=== PATIENT | female | born 1985 | race Caucasian/White ===

== ENCOUNTER 2017-02-25 09:11 | Emergency (ER) | payer BC, OTHER ==
[~2017-02-25 09:11] MED LIST: LEXA10TA PO; OMPR20CCR PO; PANT40P IVP
--- NOTE | 2017-02-25 09:57 | PD ---
HPI Chief Complaint Lower abdominal pain Date Seen: Feb 25, 2017 Time Seen: 09:52 Travel History International Travel<30 Days: No Contact w/Intl Traveler<30Days: No Known Affected Area: No History of Present Illness HPI 31-year-old 2 para 1 at 27+ weeks gestation who awoke this morning with lower abdominal pain which she describes in the suprapubic area slightly greater on the left. It has been intermittent and not aggravated by anything in particular. She has not found any alleviating components. No dysuria hematuria or frequency. No leakage of fluid or vaginal bleeding and no vaginal discharge. History Past Medical History Medical History: Denies Significant Hx Obstetric History Obstetric History Prior at term for failed induction care with Dr. 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 Family History: Negative Social History Alcohol Use: No Tobacco Use: No Allergies-Medications (Allergen,Severity, Reaction): Coded Allergies: No Known Allergies (Verified , 07/07/14) Home Meds Active Scripts Omeprazole (Prilosec 20 Mg Cap) 20 Mg Capcr, 20 MG PO DAILY, #30 CAP Prov:Sohail Price MD 07/07/14 Reported Medications Pantoprazole Sodium (Protonix) 40 Mg Inj, 40 MG IVP Q24H, INJ 07/07/14 Escitalopram Oxalate (Lexapro) 10 Mg Tab, 10 MG PO DAILY, TAB 07/07/14 Review of Systems Except as stated in HPI: all other systems reviewed are Neg Physical Exam Narrative GENERAL: Well-nourished, well-developed patient. SKIN: Warm and dry. HEAD: Normocephalic and atraumatic. EYES: No scleral icterus. No injection or drainage. ENT: No nasal drainage noted. Mucous membranes pink. Airway patent. NECK: Supple, trachea midline. No JVD. CARDIOVASCULAR: Regular rate and rhythm without murmurs, gallops, or rubs. RESPIRATORY: Breath sounds equal bilaterally. No accessory muscle use. ABDOMEN/GI: Abdomen soft, non-tender, bowel sounds present, no rebound, no guarding Gravid to [-] weeks size Fundal Height: [-] GENITOURINARY: External Genitalia: intact and normal in appearance BUS glands: [-] Cervix: [-] Dilatation: [Closed long-] Effacement: [-Long] Station: [-] Presentation: [-] Membranes: [intact] Uterine Contractions: [None-] FHT's: Category: [1-] Baseline: [-] Reactive: [-] Variability: [-] Decels: [-] EXTREMITIES: No cyanosis or edema. BACK: Nontender without obvious deformity. No CVA tenderness. NEUROLOGICAL: Awake and alert. Motor and sensory grossly within normal limits. Five out of 5 muscle strength in all muscle groups. Normal speech. MDM Medical Record Reviewed: Yes Narrative Course / MDM Assessment: 27+ week intrauterine with lower abdominal pain possibly round ligament pain Plan: Precautions were reviewed with the patient and she'll follow for routine care. Diagnosis Diagnosis: Primary Impression: 27 weeks gestation of Additional Impression: Round ligament pain Disposition: 01 DISCHARGE HOME Condition: Good Marcelo Vines MD Feb 25, 2017 09:57
== END 2017-02-25 14:17 | disposition home or self-care (01) ==
LOC: HOBED 09:11
DX: O26.892 Other specified pregnancy related conditions, second trimester (principal); Z3A.27 27 weeks gestation of pregnancy
CPT/HCPCS: 99283

== ENCOUNTER 2017-05-09 09:10 | Emergency (ER) | payer OTHER ==
--- NOTE | 2017-05-09 10:38 | PD ---
HPI Chief Complaint Lower abdominal pelvic pain for 1 day, urinary leakage Date Seen: May 09, 2017 Time Seen: 10:20 Travel History International Travel<30 Days: No Contact w/Intl Traveler<30Days: No Known Affected Area: No History of Present Illness HPI Patient is 32-year-old white female A1 previous now 37 weeks and [address] Merritt for care who presents with one-day history of severe pain with movement in the symphysis area lower abdomen and almost upper outer vaginal area. Pain is severe with movement she can hardly walk she can not get in and out of the car but when laying still it is not bad, patient states she's had somewhat of a problem with this since early in the second trimester and she is discussed with Dr. Merritt before. This never been bad enough to really do anything about but today this morning it is much much worse area and heart rate tracing is reactive she's having no regular contractions only 1 or 2 has been seen. Patient scheduled for C- section in 12 days as a repeat, she is also in breech presentation prior to today and today by ultrasound Weeks Gestation: 37 Para: 1 : 3 Last Menstrual Period: May 09, 2017 Miscarriage: 1 History Obstetric History Obstetric History 1 and one early loss Past Surgical History Narrative Surgical 1 Social History Alcohol Use: No Tobacco Use: No Substance Abuse: No Allergies-Medications (Allergen,Severity, Reaction): Coded Allergies: No Known Allergies (Verified , 07/07/14) Home Meds Active Scripts Omeprazole (Prilosec 20 Mg Cap) 20 Mg Capcr, 20 MG PO DAILY, #30 CAP Prov:Sohail Price MD 07/07/14 Reported Medications Pantoprazole Sodium (Protonix) 40 Mg Inj, 40 MG IVP Q24H, INJ 07/07/14 Escitalopram Oxalate (Lexapro) 10 Mg Tab, 10 MG PO DAILY, TAB 07/07/14 Review of Systems General / Constitutional: No: Fever, Weight Gain, Chills, Other Eyes: No: Diploplia, Blurred Vision, Visual changes, Pain, Photophobia HENT: No: Headaches, Vertigo, Lightheadedness Cardiovascular: No: Irregular Rhythm, Chest Pain or Discomfort, Palpitations, Tachycardia, Syncope, Varicosities, Edema, Cyanosis Respiratory: No: Cough, Short of Breath, Other Gastrointestinal: Abdominal Pain, No: Nausea, Vomiting, Diarrhea Genitourinary: No: Decreased Urinary Output, Oliguria Musculoskeletal: No: Limited ROM, Weakness, Cramping, Edema, Pain Skin: No Rash, No Itching, No Dryness, No Lumps, No Change in Pigmentation, No Change in Nails, No Alopecia, No Lesions Neurologic: No: Weakness, Dizziness, Syncope, Focal Abnormalities, Coordination Problem, Headache, Slurred Speech, Seizures Psychiatric: No: Depression, Suicidal Ideations, Homicidal Ideation Endocrine: No: Heat Intolerance, Cold Intolerance, Polydipsia, Polyuria, Other Physical Exam Narrative GENERAL: Well-nourished, well-developed patient. SKIN: Warm and dry. HEAD: Normocephalic and atraumatic. EYES: No scleral icterus. No injection or drainage. ENT: No nasal drainage noted. Mucous membranes pink. Airway patent. NECK: Supple, trachea midline. No JVD. CARDIOVASCULAR: Regular rate and rhythm without murmurs, gallops, or rubs. RESPIRATORY: Breath sounds equal bilaterally. No accessory muscle use. BREASTS: Bilateral exam showed no masses , no retractions, no nipple discharge. ABDOMEN/GI: Abdomen soft, non-tender, bowel sounds present, no rebound, no guarding Gravid to [38-] weeks size Fundal Height: [38-] GENITOURINARY: External Genitalia: intact and normal in appearance Symphysis bone palpated from vaginal standpoint is quite tender Cervix: [-Posterior] Dilatation: [-] Closed Effacement: [-thick] Station: [-3] Presentation: [-Breech by ultrasound today] Membranes: [intact ] Uterine Contractions: [Occasional-] FHT's: Category: [1-] Baseline: [-133] Reactive: [-yes] Variability: [mod-] Decels: [0-] EXTREMITIES: No cyanosis or edema. BACK: Nontender without obvious deformity. No CVA tenderness. NEUROLOGICAL: Awake and alert. Motor and sensory grossly within normal limits. Five out of 5 muscle strength in all muscle groups. Normal speech. Data Data Orders Orders Urinalysis - C+S If Indicated (05/09/17 10:18) Labs Urine dip stick evaluation on OB ED is negative for infection MDM Interpretation(s) Patient is 32-year-old white female A1 at 37 weeks was previous scheduled for repeat in 12 days who presents complaining of severe pain when walking or moving in the symphysis area and upper vagina area. She's had some issues with this earlier in but just had this since this morning it's been extremely bad, she is also incontinent of urine at times the pain happens she will ultimately compare amount of urine amnio sure is negative today. Heart rate tracing is reactive and no regular contractions, cervix is closed thick and high Impression--diastasis symphysis bone with resulting severe pain with movement and walking, urinary incontinence also related to the same problem Plan--bedrest at this time, possibly is abdominal binder to take the weight up off of the symphysis, with the assistance like a walker that the elderly use use by mouth pain medication and Dr. Merritt will review case is well and there is the the alternative care for symptoms are relieved to deliver by somewhat early to try and treat her problem Plan We'll discuss with Dr. Merritt treatment options and he was discussed with the patient once appropriate along with the nursing staff as well and map out a plan of care for the patient Diagnosis Diagnosis: Primary Impression: Traumatic diastasis of symphysis pubis Additional Impressions: Previous section Urinary incontinence Disposition: 01 DISCHARGE HOME Condition: Stable Layo Perry II, MD May 09, 2017 10:38
[2017-05-09 10:43] LABS: BACTERIA, URINE RARE /hpf; BLOOD, URINE NEG (NEG); COMMENT (UR) CULT NOT INDICATED; CULTURE IF INDICATED CULT NOT INDICATED; GLUCOSE,URINE NEG (NEG); KETONE, URINE NEG (NEG); MUCUS URINE FEW /lpf (OCC); NITRITE,URINE NEG (NEG); SQUAMOUS EPITHELIAL CELL URINE 2 /hpf (0-5); URINE COLOR YELLOW (YELLW/STRAW)
== END 2017-05-09 11:17 | disposition home or self-care (01) ==
LOC: HOBED 09:10
DX: O26.893 Other specified pregnancy related conditions, third trimester (principal); R32 Unspecified urinary incontinence; R10.30 Lower abdominal pain, unspecified; M62.08 Separation of muscle (nontraumatic), other site; Z3A.37 37 weeks gestation of pregnancy
CPT/HCPCS: 59025; 76815; 81001; 84112

== ENCOUNTER 2017-05-17 12:00 | Inpatient (IN) | payer OTHER ==
[~2017-05-17] VITALS: Ht 170.2 cm; Wt 114.0 kg
[2017-05-21] VITALS (9 sets, daily range): BP systolic 91–112; BP diastolic 50–54; PULSE 72–82; RESP 16–19; TEMP 97.7–98.2; O2SAT 100
[2017-05-21] MEDS ORDERED: LACTATED RINGER'S 1000 ML INJ 1,000 ML IV ONE (10:20)
--- NOTE | 2017-05-21 10:21 | HHI.HP ---
HPI Chief Complaint Repeat Date Seen: May 21, 2017 Travel History International Travel<30 Days: No Contact w/Intl Traveler<30Days: No History of Present Illness HPI Patient is a 32 year old at 39-4/7 weeks gestation who presents today for a repeat . She denies any vaginal bleeding or discharge. No gush or leaking of fluid. Positive movement. History Past Medical History Medical History: Denies Significant Hx Obstetric History Obstetric History in 2007 for failed induction, macrosomia at 40 weeks gestation spontaneous Past Surgical History Narrative Surgical 2007 Family History Narrative Family History stomach cancer HLD Social History Alcohol Use: No Tobacco Use: No Substance Abuse: No Allergies-Medications (Allergen,Severity, Reaction): Coded Allergies: No Known Allergies (Verified Allergy, Unknown, 05/21/17) Home Meds Reported Medications Ranitidine (Zantac) 150 Mg Tab, 150 MG PO BID for Reduce Stomach Acid, #60 TAB 0 Refills 05/21/17 Vit-Iron Carbonyl ( Plus Iron 29-1 mg) 29 Mg Iron-1 Mg Tab, 1 TAB PO DAILY for Nutritional Supplement, #30 TAB 0 Refills 05/21/17 Discontinued Reported Medications Pantoprazole Sodium (Protonix) 40 Mg Inj, 40 MG IVP Q24H, INJ 07/07/14 Escitalopram Oxalate (Lexapro) 10 Mg Tab, 10 MG PO DAILY, TAB 07/07/14 Discontinued Scripts Omeprazole (Prilosec 20 Mg Cap) 20 Mg Capcr, 20 MG PO DAILY, #30 CAP Prov:Sohail Price MD 07/07/14 Review of Systems Except as stated in HPI: all other systems reviewed are Neg General / Constitutional: No: Fever, Chills Eyes: No: Visual changes HENT: No: Headaches Cardiovascular: No: Chest Pain or Discomfort Respiratory: No: Short of Breath Gastrointestinal: No: Abdominal Pain Genitourinary: No: Pelvic Pain, Discharge, Vaginal Bleeding Musculoskeletal: No: Edema Neurologic: No: Headache Psychiatric: No: Substance Abuse Physical Exam Narrative GENERAL: Well-nourished, well-developed patient. SKIN: Warm and dry. HEAD: Normocephalic and atraumatic. EYES: No scleral icterus. No injection or drainage. ENT: No nasal drainage noted. Mucous membranes pink. Airway patent. NECK: Supple, trachea midline. No JVD. CARDIOVASCULAR: Regular rate and rhythm without murmurs, gallops, or rubs. RESPIRATORY: Breath sounds equal bilaterally. No accessory muscle use. ABDOMEN/GI: Abdomen soft, non-tender, bowel sounds present, no rebound, no guarding Gravid to 39 weeks size GENITOURINARY: External Genitalia: intact and normal in appearance Presentation: vertex Membranes: intact Uterine Contractions: q2-3 minutes FHT's: Category: I Baseline: 120 Reactive: + Variability: moderate Decels: none EXTREMITIES: No cyanosis or edema. BACK: Nontender without obvious deformity. No CVA tenderness. NEUROLOGICAL: Awake and alert. Motor and sensory grossly within normal limits. Normal speech. Caprini VTE Risk Assessment Caprini VTE Risk Assessment: No/Low Risk (score <= 1) Caprini Risk Assessment Model Point Value = 1 Point Value = 2 Point Value = 3 Point Value = 5 Age 41-60 Minor surgery BMI > 25 kg/m2 Swollen legs Varicose veins or History of unexplained or recurrent spontaneous Oral contraceptives or hormone replacement Sepsis (< 1 month) Serious lung disease, including pneumonia (< 1 month) Abnormal pulmonary function Acute myocardial infarction Congestive heart failure (< 1 month) History of inflammatory bowel disease Medical patient at bed rest Age 61-74 Arthroscopic surgery Major open surgery (> 45 min) Laparoscopic surgery (> 45 min) Malignancy Confined to bed (> 72 hours) Immobilizing plaster cast Central venous access Age >= 75 History of VTE Family history of VTE Factor V Leiden Prothrombin [id number] Lupus anticoagulant Anticardiolipin antibodies Elevated serum homocysteine Heparin-induced thrombocytopenia Other congenital or acquired thrombophilia Stroke (< 1 month) Elective arthroplasty Hip, pelvis, or leg fracture Acute spinal cord injury (< 1 month) Prophylaxis Regimen Total Risk Factor Score Risk Level Prophylaxis Regimen 0-1 Low Early ambulation 2 Moderate Order ONE of the following: *Sequential Compression Device (SCD) *Heparin 5000 units SQ BID 3-4 Higher Order ONE of the following medications: *Heparin 5000 units SQ TID *Enoxaparin/Lovenox 40 mg SQ daily (WT < 150 kg, CrCl > 30 mL/min) *Enoxaparin/Lovenox 30 mg SQ daily (WT < 150 kg, CrCl > 10-29 mL/min) *Enoxaparin/Lovenox 30 mg SQ BID (WT < 150 kg, CrCl > 30 mL/min) AND/OR *Sequential Compression Device (SCD) 5 or more Highest Order ONE of the following medications: *Heparin 5000 units SQ TID (Preferred with Epidurals) *Enoxaparin/Lovenox 40 mg SQ daily (WT < 150 kg, CrCl > 30 mL/min) *Enoxaparin/Lovenox 30 mg SQ daily (WT < 150 kg, CrCl > 10-29 mL/min) *Enoxaparin/Lovenox 30 mg SQ BID (WT < 150 kg, CrCl > 30 mL/min) AND *Sequential Compression Device (SCD) Data Data Vital Signs Reviewed: Yes Orders Orders Admit To Inpatient (05/21/17 ) Code Status (05/21/17 10:20) Vital Signs (Adult) .ON ADMISSION (05/21/17 10:20) Activity Oob Ad Crissy (05/21/17 10:20) Heart (05/21/17 10:20) Urinary Catheter Management HILL.Q8H (05/21/17 10:20) ^ Preps (05/21/17 10:20) Scd / Chong / Foot Pump HILL.QSHIFT (05/21/17 10:20) ^ Ultrasound For Locatio (05/21/17 10:20) Diet Npo (05/21/17 Lunch) Lactated Ringer's 1000 Ml Inj (Lr 1000 M (05/21/17 10:20) Lactated Ringer's 1000 Ml Inj (Lr 1000 M (05/21/17 10:50) Cefazolin 2 Gm Premix (Ancef 2 Gm Premix (05/21/17 11:30) Citric Acid-Sodium Citrate Liq (Bicitra (05/21/17 12:00) Type And Screen (05/21/17 10:20) Complete Blood Count With Diff (05/21/17 10:20) Urinalysis - C+S If Indicated (05/21/17 10:20) Drug Screen, Random Urine (05/21/17 10:20) Inpatient Certification (05/21/17 ) Specimen To Be Collected PRN (05/21/17 10:20) Specimen To Be Collected PRN (05/21/17 10:20) Group B Strep: Positive Assessment/Plan Assessment and Plan 32 year old at 39-4/7 weeks gestation. 1. IUP- Category I tracing, reassuring. 2. Repeat 3. GBS positive dw Meredith Jhaveri MD, R3 May 21, 2017 10:21
[2017-05-21] MEDS ORDERED: LACTATED RINGER'S 1000 ML INJ 1,000 ML IV SCH ×2 (10:50→19:37)
[2017-05-21] MEDS ORDERED: ZANT150T2 PO ×2 (10:57)
[2017-05-21] MEDS ORDERED: PREN29TA PO ×2 (10:57)
[2017-05-21 11:05] LABS: AUTOMATED NEUTROPHIL # 7.7 TH/MM3 (1.8-7.7); BASOPHIL % 0.2 % (0.0-2.0); EOSINOPHIL # 0.1 TH/MM3 (0-0.4); EOSINOPHIL % 1.4 % (0.0-4.0); HEMO FLAGS DIFF FINAL; LYMPH % 11.1 % (9.0-44.0); LYMPHOCYTE # 1.1 TH/MM3 (1.0-4.8); MEAN CELL VOLUME 72.6 FL (80.0-100.0); MEAN CORPUSCULAR HEMOGLOBIN 23.2 PG (27.0-34.0); MONO % 8.1 % (0.0-8.0); NEUT % 79.2 % (16.0-70.0); PLATELET COUNT 244 TH/MM3 (150-450); RED BLOOD COUNT 4.41 MIL/MM3 (4.00-5.30); RED CELL DISTRIBUTION WIDTH 15.9 % (11.6-17.2); WHITE BLOOD COUNT 9.8 TH/MM3 (4.0-11.0)
[2017-05-21 11:27] LABS: BLOOD, URINE NEG (NEG); COMMENT (UR) CULT NOT INDICATED; CULTURE IF INDICATED CULT NOT INDICATED; GLUCOSE,URINE NEG (NEG); KETONE, URINE NEG (NEG); MUCUS URINE FEW /lpf (OCC); NITRITE,URINE NEG (NEG); SQUAMOUS EPITHELIAL CELL URINE 2 /hpf (0-5); URINE COLOR YELLOW (YELLW/STRAW)
[2017-05-21] MEDS ORDERED: ceFAZolin 2 GM PREMIX 50 ML IV SCH (11:30)
[2017-05-21] MEDS ORDERED: CITRIC ACID-SODIUM CITRATE LIQ 30 ML UDC PO SCH (12:00)
[2017-05-21] MEDS ORDERED: ACETAMINOPHEN 1000 MG/100 ML 100 ML IV ONE (12:09)
[2017-05-21] MEDS ORDERED: EPIDURAL-DIPHENHYDRAMINE HCL 50 MG CAP PO PRN (13:05)
[2017-05-21] MEDS ORDERED: EPIDURAL-NALOXONE HCL 0.4 MG/ML AMP IV PUSH PRN (13:05)
[2017-05-21] MEDS ORDERED: EPIDURAL-NO SYSTEMIC NARCOTICS PRN (13:05)
[2017-05-21] MEDS ORDERED: EPIDURAL-DO NOT ADMINISTER ANTICOAGULANTS PRN (13:05)
[2017-05-21] MEDS ORDERED: KETOROLAC TROMETHAMINE 60 MG/2 ML (IM) VIAL IM PRN ×2 (14:45)
[2017-05-21] MEDS ORDERED: ZOLPIDEM TARTRATE 5 MG TAB PO PRN (14:45)
[2017-05-21] MEDS ORDERED: SODIUM CHLORIDE 0.9% FLUSH 10 ML FLUSH IV FLUSH PRN (14:45)
[2017-05-21] MEDS ORDERED: OXYTOCIN 30 UNITS-500ML PREMIX 500 ML IV ONE (14:45)
[2017-05-21] MEDS ORDERED: oxyCODONE/ACETAMINOPHEN 5 MG/325 MG TAB PO PRN (14:45)
[2017-05-21] MEDS ORDERED: ONDANSETRON HCL 4 MG/2 ML VIAL IV PUSH PRN (14:45)
[2017-05-21] MEDS ORDERED: SIMETHICONE 80 MG CHEWABLE TAB PO PRN (14:45)
[2017-05-21] MEDS ORDERED: ACETAMINOPHEN 325 MG TAB PO PRN (14:45)
--- NOTE | 2017-05-21 14:49 | PD.OP ---
Operative Report Date of Surgery: May 21, 2017 Preoperative Diagnosis: (1) 39 weeks gestation of (2) Previous section Postoperative Diagnosis: (1) 39 weeks gestation of (2) Previous section Procedure: Repeat Low Transverse Section Anesthesia: Spinal Surgeon: Ashely Merritt [employer] Hire(s): Tanya Huff Resident Surgeon: Meredith Tapia Operation and Findings: PREOPERATIVE DIAGNOSIS 1. Intrauterine at 39-4/7 weeks gestation. 2. Repeat Section POSTOPERATIVE DIAGNOSIS 1. Intrauterine at 39-4/7 weeks gestation. 2. Repeat Section PROCEDURE Repeat low transverse section. FINDINGS: Infant male weighing 4510g. Apgars 8/9. Normal fallopian tubes, ovaries, and uterus. ANESTHESIA Spinal. SURGEON Ashely Merritt MD CO-SURGEON Kailey Tapia MD, R3 COMPLICATIONS None. COUNTS Correct. ESTIMATED BLOOD LOSS 500 cc. FLUIDS Crystalloids. CONDITION The patient tolerated the procedure well and went to the recovery room in good condition. PROCEDURE IN DETAIL Under an adequate level of anesthesia, she was prepped and draped for abdominal surgery. A Pfannenstiel incision was made and carried down to the fascia. The fascia was taken off the rectus muscle by blunt and sharp dissection. The rectus muscles were spread bluntly and the peritoneum was entered under direct vision without difficulty. The incision was extended with care to avoid the urinary bladder. A bladder blade was placed and a bladder flap created in the usual fashion. The uterine incision was made in a transverse manner along the lower uterine segment which was not well-developed. It was taken down in the midline until the intrauterine cavity was entered. A large amount of clear fluid was noted. The head was grasped and with fundal pressure, the head was delivered without difficulty. The rest of the body was delivered without complications. The cord was doubly clamped and cut after 45 seconds of delayed cord clamping and the infant handed to the resuscitation team present. The placenta was delivered manually. The uterus was curettaged twice with a wet lap. The uterine incision was then repaired with 2-0 Vicryl in a running locking fashion, with the second layer imbricating the first. Hemostasis was excellent. The cul-de-sac and gutters were cleaned of blood and debris. The uterus was delivered back into the abdomen. The rectus muscles were reapproximated with 0 Vicryl in a running fashion. The fascia was repaired from lateral to midline with 0 Vicryl and the subcu was repaired with 3-0 Vicryl. The skin was repaired with a 4-0 Vicryl in a subcuticular manner. The wound was sterilely dressed with a pressure dressing. She tolerated the procedure well and went to the recovery room in satisfactory condition. Meredith Tapia MD, R3 May 21, 2017 14:49
[2017-05-21] MEDS ORDERED: OXYTOCIN 30 UNITS-500ML PREMIX 500 ML ONE (15:28)
[2017-05-21] MEDS: EPIDURAL-DIPHENHYDRAMINE HCL 50 MG/ML VIAL IV PUSH PRN (16:40)
[2017-05-21] MEDS ORDERED: SODIUM CHLORIDE 0.9% FLUSH 10 ML FLUSH IV FLUSH SCH (21:00)
[2017-05-21] MEDS: IBUPROFEN 600 MG TAB PO PRN (23:48)
[2017-05-22] MEDS ORDERED: OXYTOCIN 30 UNITS-500ML PREMIX 500 ML IV PRN (00:45)
[2017-05-22] MEDS: EPIDURAL-DIPHENHYDRAMINE HCL 50 MG/ML VIAL IV PUSH PRN (05:40)
[2017-05-22] MEDS: DOCUSATE SODIUM 50 MG/SENNA 8.6 MG TAB PO PRN (05:41)
[2017-05-22] MEDS: oxyCODONE/ACETAMINOPHEN 5 MG/325 MG TAB PO PRN ×3 (05:41→17:25)
[2017-05-22] MEDS: IBUPROFEN 600 MG TAB PO PRN ×2 (05:41→17:25)
[2017-05-22 05:59] LABS: AUTOMATED NEUTROPHIL # 9.2 TH/MM3 (1.8-7.7); BASOPHIL % 0.3 % (0.0-2.0); EOSINOPHIL # 0.1 TH/MM3 (0-0.4); EOSINOPHIL % 1.1 % (0.0-4.0); HEMO FLAGS DIFF FINAL; LYMPH % 8.2 % (9.0-44.0); LYMPHOCYTE # 0.9 TH/MM3 (1.0-4.8); MEAN CELL VOLUME 72.8 FL (80.0-100.0); MEAN CORPUSCULAR HEMOGLOBIN 23.5 PG (27.0-34.0); MEAN CORPUSCULAR HGB CONC 32.3 % (32.0-36.0); MONO % 8.6 % (0.0-8.0); NEUT % 81.8 % (16.0-70.0); PLATELET COUNT 208 TH/MM3 (150-450); RED CELL DISTRIBUTION WIDTH 16.1 % (11.6-17.2); WHITE BLOOD COUNT 11.3 TH/MM3 (4.0-11.0)
[2017-05-22 08:00] VITALS: BP 89/58; PULSE 86; RESP 16; TEMP 98.2
--- NOTE | 2017-05-22 09:31 | HHI.OB ---
Subjective Post Operative Day: 1 Objective Vitals/I&O Vital Signs Date Time Temp Pulse Resp B/P (MAP) Pulse Ox O2 Delivery O2 Flow Rate FiO2 05/22/17 08:00 98.2 86 16 89/58 (68) 05/21/17 15:39 98.0 05/21/17 15:31 72 16 91/50 (64) 100 05/21/17 15:18 79 19 97/54 (68) 100 05/21/17 15:05 95/50 (65) 05/21/17 14:58 81 05/21/17 14:58 18 100 05/21/17 14:47 112/51 (71) 05/21/17 14:45 100 05/21/17 14:42 108/52 (70) 05/21/17 14:42 97.7 82 19 05/21/17 11:00 98.2 Result Diagram: 05/22/17 0501 Objective Remarks GENERAL: Well-nourished, well-developed patient. CARDIOVASCULAR: Regular rate and rhythm without murmurs, gallops, or rubs. RESPIRATORY: Breath sounds equal bilaterally. No accessory muscle use. ABDOMEN/GI: Abdomen soft, non-tender, bowel sounds present. Incision: dressing, Clean, dry and intact. Fundus: Firm, non-tender at umbilicus. GENITOURINARY: Light to moderate bleeding. EXTREMITIES: No cyanosis or edema, non-tender, without signs of DVT. Medications and IVs Current Medications Medications (Trade) Dose Ordered Sig/Oswaldo Route Start Time Stop Time Status Last Admin Lactated Ringer's 1,000 ml @ 100 mls/hr Q10H IV 05/21/17 19:37 05/22/17 15:36 Oxytocin 500 ml @ 100 mls/hr UNSCH X1 PRN IV 05/22/17 00:45 05/23/17 00:44 (NS Flush) 2 ml BID IV FLUSH 05/21/17 21:00 (NS Flush) 2 ml UNSCH PRN IV FLUSH 05/21/17 14:45 (Mylicon Chew) 80 mg QID PRN PO 05/21/17 14:45 (Tylenol) 650 mg Q6H PRN PO 05/21/17 14:45 (Motrin) 600 mg Q6H PRN PO 05/21/17 14:45 05/22/17 05:41 (Toradol Inj) 60 mg UNSCH X1 PRN IM 05/21/17 14:45 05/22/17 14:44 (Toradol Inj) 30 mg Q6H PRN IM 05/21/17 14:45 (Percocet 5-325 Mg) 1 tab Q4H PRN PO 05/21/17 14:45 05/22/17 01:55 (Percocet 5-325 Mg) 2 tab Q4H PRN PO 05/21/17 14:45 05/22/17 05:41 (Hollie-Colace) 2 tab Q12H PRN PO 05/21/17 14:45 05/22/17 05:41 (Ambien) 5 mg HS PRN PO 05/21/17 14:45 (M-M-R Ii Inj) 0.5 ml ONCE ONCE SQ 05/22/17 16:00 05/22/17 16:01 (Boostrix Inj) 0.5 ml ONCE ONCE IM 05/22/17 16:00 05/22/17 16:01 (Zofran Inj) 4 mg Q6H PRN IV PUSH 05/21/17 14:45 Miscellaneous Information NO SYSTEMIC NARCOTICS TO BE GIVEN FO... UNSCH PRN .XX 05/21/17 13:05 05/22/17 13:04 (Narcan Inj) 0.4 mg UNSCH PRN IV PUSH 05/21/17 13:05 05/22/17 13:04 (Benadryl Inj) 25 mg Q6H PRN IV PUSH 05/21/17 13:05 05/22/17 13:04 05/22/17 05:40 (Benadryl) 50 mg Q6H PRN PO 05/21/17 13:05 05/22/17 13:04 Miscellaneous Information ALL NURSING DEPARTMENTS UNSCH PRN .XX 05/21/17 13:05 05/22/17 13:04 Assessment/Plan Problem List: (1) S/P repeat low transverse ICD Codes: Z98.891 - History of uterine scar from previous surgery (2) Anemia ICD Codes: D64.9 - Anemia, unspecified Assessment and Plan POD #1 pt doing well pain well managed with oral pain medication bp a little low, pt able to ambulate but is feeling a little dizzy, advised to move slowly, she denies sob HGB 8.7, we will order Venofer and bonding with infant routine Discharge Planning consider dc in 2 days Sonya Davidson May 22, 2017 09:31
[2017-05-22] MEDS ORDERED: INFLUENZA VIRUS VACCINE (QUADRIVALENT) 0.5 ML SYR IM ONE (10:00)
[2017-05-22] MEDS: IRON SUCROSE INJ 200 MG in SODIUM CHLORIDE 0.9% INJ 100 ML IV SCH (12:22)
[2017-05-22 15:28] VITALS: BP_SYST 96; BP_SYST 97; BP_DIAS 66; BP_DIAS 76; PULSE 96; RESP 18; TEMP 97.7
[2017-05-22] MEDS ORDERED: DIPHTH/TETANUS/ACEL PERTUSSIS (BOOSTER) 0.5 ML VIAL/PFS IM ONE (16:00)
[2017-05-22] MEDS ORDERED: MEASLES, MUMPS, RUBELLA VACCINE 0.5 ML VIAL SQ ONE (16:00)
[2017-05-22 21:00] VITALS: BP 104/62; PULSE 102; RESP 16; TEMP 98.1
[2017-05-23] MEDS: DOCUSATE SODIUM 50 MG/SENNA 8.6 MG TAB PO PRN (00:18)
[2017-05-23] MEDS: oxyCODONE/ACETAMINOPHEN 5 MG/325 MG TAB PO PRN ×3 (00:18→10:38)
[2017-05-23] MEDS: IBUPROFEN 600 MG TAB PO PRN ×3 (00:18→11:58)
[2017-05-23] MEDS ORDERED: DIPHTH/TETANUS/ACEL PERTUSSIS (BOOSTER) 0.5 ML VIAL/PFS IM ONE (03:00)
[2017-05-23 07:56] VITALS: BP 103/59; PULSE 92; RESP 18; TEMP 98
[2017-05-23] MEDS ORDERED: OXYC1TAB63 PO (08:22)
[2017-05-23] MEDS ORDERED: IBUP-232 PO (08:22)
--- NOTE | 2017-05-23 09:14 | HHI.OB ---
Subjective Post Operative Day: 2 Objective Vitals/I&O Vital Signs Date Time Temp Pulse Resp B/P (MAP) Pulse Ox O2 Delivery O2 Flow Rate FiO2 05/23/17 07:56 98.0 18 05/23/17 07:56 92 103/59 (74) 05/23/17 01:18 20 05/23/17 01:18 20 05/22/17 21:00 98.1 05/22/17 21:00 102 16 104/62 (76) 05/22/17 15:28 96 18 96/76 (83) 05/22/17 15:28 97.7 97/76 (83) 05/22/17 15:28 97/66 (76) Result Diagram: 05/22/17 0501 Objective Remarks GENERAL: Well-nourished, well-developed patient. CARDIOVASCULAR: Regular rate and rhythm without murmurs, gallops, or rubs. RESPIRATORY: Breath sounds equal bilaterally. No accessory muscle use. ABDOMEN/GI: Abdomen soft, non-tender, bowel sounds present. Incision: , Clean, dry and intact. Fundus: Firm, non-tender at umbilicus. GENITOURINARY: Light to moderate bleeding. EXTREMITIES: No cyanosis or edema, non-tender, without signs of DVT. Medications and IVs Current Medications Medications (Trade) Dose Ordered Sig/Oswaldo Route Start Time Stop Time Status Last Admin (NS Flush) 2 ml BID IV FLUSH 05/21/17 21:00 (NS Flush) 2 ml UNSCH PRN IV FLUSH 05/21/17 14:45 (Mylicon Chew) 80 mg QID PRN PO 05/21/17 14:45 (Tylenol) 650 mg Q6H PRN PO 05/21/17 14:45 (Motrin) 600 mg Q6H PRN PO 05/21/17 14:45 05/23/17 06:20 (Toradol Inj) 30 mg Q6H PRN IM 05/21/17 14:45 (Percocet 5-325 Mg) 1 tab Q4H PRN PO 05/21/17 14:45 05/22/17 01:55 (Percocet 5-325 Mg) 2 tab Q4H PRN PO 05/21/17 14:45 05/23/17 06:21 (Hollie-Colace) 2 tab Q12H PRN PO 05/21/17 14:45 05/23/17 00:18 (Ambien) 5 mg HS PRN PO 05/21/17 14:45 (Zofran Inj) 4 mg Q6H PRN IV PUSH 05/21/17 14:45 Iron Sucrose 200 mg/Sodium Chloride 110 ml @ 110 mls/hr DAILY IV 05/22/17 10:00 05/24/17 09:59 05/22/17 12:22 Assessment/Plan Problem List: (1) S/P repeat low transverse ICD Codes: Z98.891 - History of uterine scar from previous surgery (2) Anemia ICD Codes: D64.9 - Anemia, unspecified Assessment and Plan POD #2 pt doing well, passing gas pain well managed with oral pain medication BP improving, denies symptoms of dizziness 2nd dose of Venofer to be given today going well routine Discharge Planning dc today Sonya Davidson May 23, 2017 09:14
--- NOTE | 2017-05-23 09:18 | HHI.DS ---
Admission Date May 21, 2017 at 10:13 Discharge Date: May 23, 2017 Admitting Diagnosis 39 week repeat c section GBS + Diagnosis: (1) Anemia ICD Codes: D64.9 - Anemia, unspecified (2) S/P repeat low transverse ICD Codes: Z98.891 - History of uterine scar from previous surgery Delivery Date: May 21, 2017 : Repeat Infant: Male Brief History Patient is a 32 year old at 39-4/7 weeks gestation who presents today for a repeat . She denies any vaginal bleeding or discharge. No gush or leaking of fluid. Positive movement. Hospital Course repeat c section treatment for anemia routine care Pt Condition on Discharge: Good Discharge Disposition: Discharge Home Discharge Instructions Diet Instructions: As Tolerated, No Restrictions Additional Diet Instructions: Drink at least 8 - 16 oz bottles of water a day Activities You Can Perform: Shower Only-No Bath Activities to Avoid: Prolonged Standing, Strenuous Activity, Sexual Activity Additional Activity Instruc.: No driving until off pain medications Do not lift anything heavier than your baby in an carrier Follow up Referrals: [facility] CONSULTANT - 1 Week @ [facility] New Medications: Ibuprofen (Ibuprofen) 600 Mg Tab 600 MG PO Q6H PRN for CRAMPING, #30 TAB Oxycodone HCl/Acetaminophen (Oxycodone-Acetaminophen 5-325) 5 Mg-325 Mg Tablet 1-2 TAB PO Q4H PRN for moderate pain, #30 TAB Continued Medications: Vit-Iron Carbonyl ( Plus Iron 29-1 mg) 29 Mg Iron-1 Mg Tab 1 TAB PO DAILY for Nutritional Supplement, #30 TAB 0 Refills Ranitidine (Zantac) 150 Mg Tab 150 MG PO BID for Reduce Stomach Acid, #60 TAB 0 Refills Sonya Davidson May 23, 2017 09:18
[2017-05-23] MEDS: IRON SUCROSE INJ 200 MG in SODIUM CHLORIDE 0.9% INJ 100 ML IV SCH (09:43)
[2017-05-23] MEDS ORDERED: INFLUENZA VIRUS VACCINE (QUADRIVALENT) 0.5 ML SYR IM ONE (12:00)
== END 2017-05-23 15:46 | disposition home or self-care (01) | DRG 766 ==
LOC: H2EB 05-21 10:13 → H1EA 05-21 15:46
PROVIDERS: ADMIT Obstetrics & Gynecology; ATTEND Obstetrics & Gynecology
PROC: 10D00Z1 Extraction of Products of Conception, Low, Open Approach (ICD-10-PCS; principal; 2017-05-21)
DX: O34.211 Maternal care for low transverse scar from previous cesarean delivery (principal); O99.02 Anemia complicating childbirth; O99.824 Streptococcus B carrier state complicating childbirth; Z37.0 Single live birth; Z3A.39 39 weeks gestation of pregnancy
CPT/HCPCS: 59025; 80307; 81001; 85025; 86850; 86900; 86901; 90686; 90707; 90715; J0131; J0690; J1200; J1756; J2590; J7120; Q2038